=== PATIENT | male | born 1965 | race Caucasian/White ===

== ENCOUNTER 2018-02-26 18:51 | Emergency (ER) | payer OTHER ==
[~2018-02-26] VITALS: Ht 175.3 cm; Wt 45.4 kg
[~2018-02-26 18:51] MED LIST: HYDR1TAB94 PO; LANS30EC PO; PROM25 PO; Prednisone20 MG PO; SERT100 PO; SUCR1 PO; Zovirax800 MG PO
[2018-02-26] MEDS ORDERED: Ultram50 MG PO (19:59)
[2018-02-26] MEDS ORDERED: NAPR550 PO (19:59)
[2018-02-26] MEDS ORDERED: CYCL10 PO (19:59)
== END 2018-02-26 20:07 | disposition home or self-care (01) ==
LOC: ER 18:51
DX: S40.012A Contusion of left shoulder, initial encounter (principal); S20.212A Contusion of left front wall of thorax, initial encounter; Z88.5 Allergy status to narcotic agent; Z79.899 Other long term (current) drug therapy; W22.8XXA Striking against or struck by other objects, initial encounter
CPT/HCPCS: 29105; 71101; 73030; 99283

== ENCOUNTER 2019-01-17 06:55 | Day surgery (SDC) | payer OTHER ==
[~2019-01-17] VITALS: Ht 175.3 cm; Wt 86.3 kg
[~2019-01-17 06:55] MED LIST changes: +CYCL10 PO; +NAPR550 PO; +Ultram50 MG PO
--- NOTE | 2019-01-17 07:17 | NUR ---
History, Chart, Medications and Allergies reviewed before start of procedure. Patient confirms NPO status and agrees with scheduled surgery. Reports taking all of colon prep with clear results. Patient States Post-Procedure ride home has been arranged with his , Deandra.
--- NOTE | 2019-01-17 08:09 | NUR ---
01/17/19 0808 Susanna Colón History, Chart, Medications and Allergies reviewed before start of procedure. Patient confirms NPO status and agrees with scheduled surgery. PATIENT DETERMINED TO BE ASA APPROPRIATE FOR PROPOFOL SEDATION PRIOR TO START OF PROCEDURE BY DR. BECK. 3-LEAD EKG REVIEWED WITH PHYSICIAN PRIOR TO START OF PROCEDURE. MONITOR INTACT WITH CONTINUOUS PULSE OXIMETRY AND INTERMITTENT BP.
--- NOTE | 2019-01-17 09:38 | NUR ---
0930 Patient up to Ambulate independently. Gait steady. Discharge instructions reviewed with patient. Patient verbalizes understanding. Copy given to patient to take home. Patient States Post-Procedure ride home has been arranged. Discharged via wheelchair to private car for ride home.
== END 2019-01-17 22:55 | disposition home or self-care (01) ==
LOC: ORSCMMR 06:55 → ORD 08:00 → ORSCMMR 22:55
PROVIDERS: Internal Medicine Gastroenterology
PROC: 0DB98ZX Excision of Duodenum, Via Natural or Artificial Opening Endoscopic, Diagnostic (ICD-10-PCS; principal; 2019-01-17 08:00)
PROC: 0DB58ZX Excision of Esophagus, Via Natural or Artificial Opening Endoscopic, Diagnostic (ICD-10-PCS; principal; 2019-01-17 08:00)
PROC: 0DB68ZX Excision of Stomach, Via Natural or Artificial Opening Endoscopic, Diagnostic (ICD-10-PCS; principal; 2019-01-17 08:00)
PROC: 0DBN8ZX Excision of Sigmoid Colon, Via Natural or Artificial Opening Endoscopic, Diagnostic (ICD-10-PCS; principal; 2019-01-17 08:00)
DX: K22.70 Barrett's esophagus without dysplasia (principal); K21.9 Gastro-esophageal reflux disease without esophagitis; Z12.11 Encounter for screening for malignant neoplasm of colon; Z86.010 Personal history of colon polyps; K63.5 Polyp of colon; K29.80 Duodenitis without bleeding; K44.9 Diaphragmatic hernia without obstruction or gangrene
CPT/HCPCS: 88305; 88312; 88342; J2704; J7120

== ENCOUNTER 2022-08-26 10:08 | Day surgery (SDC) | payer OTHER ==
[~2022-08-26] VITALS: Ht 175.3 cm; Wt 90.1 kg
[~2022-08-26 10:08] MED LIST changes: +METPRE4DP PO; +Percocet 5-3251 EACH PO
[2022-08-26] MEDS ORDERED: LOSA25 (10:56)
== END 2022-08-26 13:20 | disposition home or self-care (01) ==
LOC: ORSCSDS 10:08
PROVIDERS: Internal Medicine Gastroenterology
PROC: 0DBK8ZX Excision of Ascending Colon, Via Natural or Artificial Opening Endoscopic, Diagnostic (ICD-10-PCS; principal; 2022-08-26 12:15)
PROC: 0DBN8ZX Excision of Sigmoid Colon, Via Natural or Artificial Opening Endoscopic, Diagnostic (ICD-10-PCS; principal; 2022-08-26 12:15)
PROC: 0DBL8ZX Excision of Transverse Colon, Via Natural or Artificial Opening Endoscopic, Diagnostic (ICD-10-PCS; principal; 2022-08-26 12:15)
DX: K22.70 Barrett's esophagus without dysplasia (principal); K21.9 Gastro-esophageal reflux disease without esophagitis; Z12.11 Encounter for screening for malignant neoplasm of colon; Z86.010 Personal history of colon polyps; D12.2 Benign neoplasm of ascending colon; D12.3 Benign neoplasm of transverse colon; K44.9 Diaphragmatic hernia without obstruction or gangrene; K57.30 Diverticulosis of large intestine without perforation or abscess without bleeding; K64.8 Other hemorrhoids
CPT/HCPCS: 88305; J2250; J2704; J7120

== ENCOUNTER → 2023-04-22 | Outpatient (CLI) | payer OTHER ==
[~2023-04-22] MED LIST changes: +LOSA25
== END | disposition home or self-care (01) ==
LOC: LAB SHORT 12:59 → PLD 12:59
DX: D04.62 Carcinoma in situ of skin of left upper limb, including shoulder (principal)
CPT/HCPCS: 88305

== ENCOUNTER 2024-02-06 17:39 | Inpatient (IN) | payer OTHER ==
[2024-02-06] VITALS (12 sets, daily range): BP systolic 126–146; BP diastolic 86–109
[~2024-02-06] VITALS: Ht 177.8 cm; Wt 90.4 kg
[2024-02-06] MEDS ORDERED: Ondansetron HCl 2 MG / ML 2ML Vial ONE (17:46)
[2024-02-06 17:50] LABS: Calcium, Ionized (POC) 1.08 mmol/L (1.10-1.46); Chloride (POC) 100 mmol/L (98-108); Glucose (ISTAT POC) 170 mg/dL (70-99); Potassium (POC) 3.1 mmol/L (3.5-5.5); Sodium (POC) 137 mmol/L (135-148); Total CO2 (POC) 22 mmol/L (21-32)
[2024-02-06] MEDS ORDERED: HYDROmorphone HCl/Pf 1MG SYR ONE (17:50)
[2024-02-06 17:59] LABS: BASOPHILS ABSOLUTE AUTO 0.06 K/mm3 (0.00-0.23); BASOPHILS PERCENT AUTO 1 % (0-2); EOSINOPHILS ABSOLUTE AUTO 0.24 K/mm3 (0.00-0.68); EOSINOPHILS PERCENT AUTO 2 % (0-6); Hematocrit 43.5 % (37.0-53.0); Hemoglobin 15.1 g/dL (13.5-17.5); IMMATURE GRAN ABSOLUTE AUTO 0.03 K/mm3 (0.00-0.10); IMMATURE GRAN PERCENT AUTO 0 % (0-1); LYMPHOCYTES ABSOLUTE AUTO 1.99 K/mm3 (0.84-5.20); LYMPHOCYTES PERCENT AUTO 19 % (21-46); MONOCYTES ABSOLUTE AUTO 1.01 K/mm3 (0.16-1.47); MONOCYTES PERCENT AUTO 10 % (4-13); Mean Corpuscular HGB 28.7 pg (26.0-34.0); Mean Corpuscular HGB Conc 34.7 g/dL (31.5-36.5); Mean Corpuscular Volume 83 fL (80-100); Mean Platelet Volume 8.3 fL (9.1-12.4); NEUTROPHILS ABSOLUTE AUTO 7.14 K/mm3 (1.96-9.15); NEUTROPHILS PERCENT AUTO 68 % (41-73); Platelet Count 217 K/mm3 (150-400); RDW Coefficient Variation 13.2 % (11.7-14.2); RDW Standard Deviation 39.8 fL (35.1-46.3); Red Blood Cell Count 5.27 M/mm3 (4.30-5.90); White Blood Cell Count 10.47 K/mm3 (4.00-11.30)
[2024-02-06] MEDS ORDERED: LORazepam 2 MG/ML 1ML Injection IV ONE (18:00)
[2024-02-06] MEDS ORDERED: HYDROmorphone HCl/Pf 1MG SYR IV PRN (18:00)
[2024-02-06 18:08] LABS: Bilirubin, Total 1.7 mg/dL (0.1-1.0); Bun/Creatinine Ratio 12.8 (12.0-20.0); Calcium, Blood 9.5 mg/dL (8.5-10.1); Creatinine, Blood 0.94 mg/dL (0.60-1.20); Potassium, Blood 3.1 mmol/L (3.5-5.5)
[2024-02-06] MEDS ORDERED: Ondansetron HCl 2 MG / ML 2ML Vial IV ONE (18:20)
[2024-02-06] MEDS ORDERED: NS 1,000 ML IV SCH ×2 (19:00→20:55)
[2024-02-06] MEDS ORDERED: Labetalol HCL 5 MG/ML 4ML Injection (Single Dose) IV ONE (19:00)
[2024-02-06] MEDS ORDERED: NS 2,000 ML IV ONE (19:05)
[2024-02-06] MEDS ORDERED: NS 250 ML IV ONE ×2 (19:05→19:22)
[2024-02-06] MEDS ORDERED: Heparin Sodium 1000 Units/ML 10ML MDV ONE ×2 (19:05→19:22)
[2024-02-06] MEDS ORDERED: NiCARdipine HCL 1,000 MCG/5 ML SYR ONE (19:06)
[2024-02-06] MEDS ORDERED: Nitroglycerin 2 MG/20 ML BTL ONE (19:06)
[2024-02-06] MEDS ORDERED: NS KCL 40 mEq 1,000 ML IV SCH (19:15)
[2024-02-06] MEDS ORDERED: Famotidine 10 MG/ML 2ML Vial IV ONE ×2 (19:15→22:50)
[2024-02-06] MEDS ORDERED: FentaNYL Citrate 50 MCG/ML 2 ML Injection ONE (20:13)
[2024-02-06] MEDS ORDERED: Midazolam HCl 1MG / ML 2ML Vial ONE (20:13)
[2024-02-06] MEDS ORDERED: Ticagrelor 90 MG TABLET PO ONE (20:41)
[2024-02-06] MEDS ORDERED: Heparin Sodium,Porcine 5,000 UNIT/0.5 ML SDV SC ONE (20:41)
[2024-02-06] MEDS ORDERED: Ondansetron HCl 2 MG / ML 2ML Vial IV PRN ×2 (20:50→22:25)
[2024-02-06] MEDS ORDERED: Nitroglycerin 0.4 MG SUBL SL PRN (20:50)
[2024-02-06] MEDS ORDERED: HydrALAZINE HCl 20 MG / ML 1ML Vial IV PRN (20:55)
[2024-02-06] MEDS ORDERED: Acetaminophen 325 MG TABLET PO PRN (20:55)
[2024-02-06] MEDS ORDERED: Potassium Chloride 20 MEQ/15 ML UDC PO ONE (21:00)
[2024-02-06] MEDS ORDERED: Potassium Chloride 40 MEQ in NS 250 ML IV ONE (21:20)
[2024-02-06] MEDS ORDERED: Irbesartan 150 MG Tab PO SCH (22:00)
[2024-02-06] MEDS ORDERED: Ticagrelor 90 MG TABLET PO SCH (22:00)
[2024-02-06] MEDS ORDERED: LORazepam 2 MG/ML 1ML Injection IV PRN (22:00)
[2024-02-06] MEDS ORDERED: Atorvastatin 40 MG Tab PO SCH (22:00)
[2024-02-06] MEDS ORDERED: FentaNYL Citrate 50 MCG/ML 2 ML Injection IV PRN (22:25)
[2024-02-06 23:00] LABS: U Amphetamine Screen Not Detected; U Barbituate Screen Not Detected; U Benzodiazapine Screen Not Detected; U Buprenorphine Screen Not Detected; U Cannabinoids Screen DETECTED; U Cocaine Screen DETECTED; U Methadone Screen Not Detected; U Methamphetamine Screen Not Detected; U Opiates Screen DETECTED; U Oxycodone Screen Not Detected; U Phencyclidine Screen Not Detected
[2024-02-06] MEDS ORDERED: Enoxaparin 40 MG/0.4 ML SYR SC SCH (23:00)
[2024-02-07] VITALS (49 sets, daily range): BP systolic 81–158; BP diastolic 55–108
--- NOTE | 2024-02-07 01:23 | NUR ---
ARRIVAL TO ICU PT ARRIVED FROM [facility] TO ICU 2. PT DROWSY BUT ABLE TO STATE HIS NAME, THE DATE, AND THAT HES IN THE HOSPITAL. MOVING AROUND IN BED, STARTLES AWAKE, IRRITABLE AT TIMES. TR BAND TO LEFT RADIAL, W/O S/S OF BLEEDING, OR HEMATOMA. DENIES CHEST PAIN/PRESSURE. VSS. ON RA. SR RATE 80'S. C/O N/V WITH 200ML OF EMESIS. PT GIVEN ZOFRAN PRIOR TO AT BEDSIDE. STATES PT IS ALLERGIC TO "NAUSEA MEDS" D/T LAST TIME PT HAD IT HE "WAS CRAWLING OUT OF HIS SKIN, TOOK HIS CLOTHES OFF AND RAN OUT OF THE HOSPITAL". NOT SURE OF WHAT MEDICATION IT WAS BUT STATED IT HAPPENED IN 1983 DURING PREVIOUS HOSPITALIZATION. PT STILL GAGGING AND NAUSEOUS AFTER ZOFRAN. HOSP CALLED AND RELAYED ABOVE INFO. ORDER FOR ATIVAN FOR N/V. PT ABLE TO TOLERATE PO MEDS AFTER. ABLE TO USE URINAL TO VOID. CALL LIGHT IN REACH.
[2024-02-07 03:13] LABS: BASOPHILS ABSOLUTE AUTO 0.05 K/mm3 (0.00-0.23); BASOPHILS PERCENT AUTO 1 % (0-2); EOSINOPHILS ABSOLUTE AUTO 0.06 K/mm3 (0.00-0.68); EOSINOPHILS PERCENT AUTO 1 % (0-6); Hematocrit 41.7 % (37.0-53.0); Hemoglobin 14.2 g/dL (13.5-17.5); IMMATURE GRAN ABSOLUTE AUTO 0.03 K/mm3 (0.00-0.10); IMMATURE GRAN PERCENT AUTO 0 % (0-1); LYMPHOCYTES ABSOLUTE AUTO 1.04 K/mm3 (0.84-5.20); LYMPHOCYTES PERCENT AUTO 10 % (21-46); MONOCYTES ABSOLUTE AUTO 0.87 K/mm3 (0.16-1.47); MONOCYTES PERCENT AUTO 8 % (4-13); Mean Corpuscular HGB Conc 34.1 g/dL (31.5-36.5); Mean Corpuscular Volume 85 fL (80-100); Mean Platelet Volume 8.4 fL (9.1-12.4); NEUTROPHILS ABSOLUTE AUTO 8.42 K/mm3 (1.96-9.15); NEUTROPHILS PERCENT AUTO 80 % (41-73); Platelet Count 165 K/mm3 (150-400); RDW Coefficient Variation 13.4 % (11.7-14.2); RDW Standard Deviation 41.6 fL (35.1-46.3); White Blood Cell Count 10.47 K/mm3 (4.00-11.30)
[2024-02-07 03:40] LABS: LDL/HDL RATIO 3.2; Magnesium, Blood 1.9 mg/dL (1.6-2.4); Very Low Density Lipoprot Chol 28 mg/dL (6-32)
[2024-02-07 03:41] LABS: Alanine Aminotransfer (ALT/SGP 43 U/L (12-78); Albumin, Blood 3.6 g/dL (3.4-5.0); Albumin/Globulin Ratio 0.9 (0.8-1.8); Alk Phos 65 U/L (50-136); Anion Gap 9 mmol/L (3-11); Aspartate Aminotrans (AST/SGOT 488 U/L (12-37); Bilirubin, Total 1.8 mg/dL (0.1-1.0); Blood Urea Nitrogen 9 mg/dL (8-24); Bun/Creatinine Ratio 12.4 (12.0-20.0); CHOL/HDL RATIO 4.8; CO2, Blood 26 mmol/L (21-32); Calcium, Blood 8.6 mg/dL (8.5-10.1); Chloride, Blood 107 mmol/L (98-108); Cholesterol 213 mg/dL (50-200); Creatinine, Blood 0.72 mg/dL (0.60-1.20); Globulin, Blood 3.8 g/dL (2.2-4.0); Glomerular Filtration Rate 105 (60-); Glucose, Blood 129 mg/dL (70-99); HDL Cholesterol 44 mg/dL (>39); Low Density Lipoprotein Chol 141 mg/dL (0-110); Potassium, Blood 4.1 mmol/L (3.5-5.5); Sodium, Blood 138 mmol/L (136-145); Total Protein, Blood 7.4 g/dL (6.4-8.2); Triglycerides 142 mg/dL (30-160)
[2024-02-07] MEDS ORDERED: Omeprazole 20 MG CapCR PO SCH (06:15)
--- NOTE | 2024-02-07 06:40 | NUR ---
SHIFT SUMMARY PT C/O 02/18 CHEST PAIN THIS AM DESCRIBED "ACHY WITH PRESSURE". EKG DONE. PT GIVEN ONE DOSE OF NITRO AND CHEST PAIN 11/21. DR PEREZ NOTIFIED AND PROVIDER TO PUT IN ORDERS. PT NOW RESTING COMFORTABLY WITH EYES CLOSED. VSS. HTN NOTED AT TIMES. MEDICATED FOR N/V X 2. TR BAND OFF AT 0215. SITE COVERED AND ARM BOARD IN PLACE. PT REQUIRE FREQUENT EDUCATION ON NOT BENDING WRIST OR MESSING WITH ARM BOARD. VOIDS VIA URINAL. REPORT GIVEN TO ONCOMING RN.
[2024-02-07] MEDS ORDERED: Metoprolol Succinate 25 MG TABCR PO SCH (07:00)
[2024-02-07] MEDS ORDERED: Isosorbide Mononitrate 30 MG TABCR PO SCH (07:00)
[2024-02-07] MEDS ORDERED: Irbesartan 150 MG Tab PO SCH (09:00)
[2024-02-07] MEDS ORDERED: Enoxaparin 40 MG/0.4 ML SYR SC SCH (09:00)
[2024-02-07] MEDS ORDERED: Aspirin 81 MG TabEC PO SCH (09:00)
--- NOTE | 2024-02-07 09:52 | NUR ---
PT IS A/O X4. HE ANSWERS QUESTIONS APPROPRIATELY, HE IS SLIGHTLY AGITATED. HE AWAKENS EASILY TO VERBAL STIMULI, HE REPORTS THAT HE IS STILL SLEEPY. HTN NOTED, HE JUST RECIEVED HIS BP MEDICATIONS AT THIS TIME. HE DENIES NAUSEA. HE DENIES CP BUT REPORTS THAT HE FEELS "A BIT OF PRESSURE" THAT HAS BEEN THERE SINCE PROCEDURE. LUNG SOUNDS ARE CLEAR TO DIM. NO EXTRA HEART SOUNDS NOTED. NO EDEMA NOTED. HE IS SBA TO TOILET.
--- NOTE | 2024-02-07 11:40 | NUR ---
PT WITH EYES CLOSED, EVEN CHEST RISE AND FALL NOTED. SR NOTED ON MONITOR.
--- NOTE | 2024-02-07 11:58 | NUR ---
PT ON PHONE WITH , PT IS AGITATED WHILE ON PHONE WITH SHE HAS NOT ARRIVED HERE. HE HAS REFUSED HIS LUNCH TRAY
--- NOTE | 2024-02-07 12:22 | NUR ---
PT UP IN BED SHOUTING THAT HE IS NAUSEOUS. HE REPORTS "A SUPER BAD HEADACHE" GRABBING HEAD. REPORTS THAT HE IS ALLERGIC TO ALL NAUSEA MEDICATIONS AFTER HE HAS BEEN MEDICATED FOR PAIN, SHE REPORTS THAT HE NEEDS TO TAKE ATIVAN FOR NAUSEA IS ALL THAT HE CAN TAKE. HE WAS STILL UP IN BED WITH NAUSEA AND PAIN, HE IS MEDICATED WITH ATIVAN FOR NASUEA WHICH DID RESOLVE NASUEA. HE IS NOW RELAXING IN BED, WITH EYES CLOSED.
--- NOTE | 2024-02-07 13:10 | NUR ---
PAIN AND NAUSEA ARE WELL CONTROLLED AT THIS TIME, PT IS RESTING WELL IN BED WITH EVEN CHEST RISE AND FALL NOTED. 119/80, RR 22, 95% ON RA, 84 HR. IS AT THE BEDSIDE, SHE EXPRESSES THAT SHE WOULD NOT LIKE TO SPEAK TO DR PEREZ AGAIN, THEN ASKS IF SHE IS BEING RECORDED, THEN BEGINS SPEAKING ABOUT THE LOSS OF HER SON A FEW WEEKS AGO AND AGAIN IS CONCERNED THAT SHE MIGHT BE BEING RECORDED STATING "I CAN'T SAY ANYTHING BECAUSE SHIT IS GONNA GO DOWN NEXT WEEK" THE SUBJECT IS CHANGED. SHE REPORTS THAT PT IS ALLERGIC TO ZOFRAN STATING THAT IS CAUSES HIM TO HAVE SEIZURES, SHE EXPRESSED THAT SHE IS ANGRY THAT "THE DOCTOR KNEW IT AND GAVE IT TO HIM ANYWAYS" IS ABLE TO BE REDIRECTED, AND CALMS.
--- NOTE | 2024-02-07 14:06 | NUR ---
MULTIPLE FAMILY IN ROOM VISITING WITH PATIENT. HE IS RESTING PAIN FREE. EVEN NONLABORED CHEST RISE AND FALL NOTED. 110/79, 19RR, 95% ON RA
--- NOTE | 2024-02-07 15:17 | NUR ---
DR ELLISON WAS IN THIS AFTERNOON TO SEE PATIENT, THE PLAN IS FOR D/C HOME TOMORROW, WITH FOLLOW-UP IN 1 MONTH. FAMILY IS EDUCATED THAT PT WILL BE D/C ON ASA 81MG WHICH STS WILL BE AN ISSUE FOR HIM DUE TO HIS STOMACH ISSUES, DR ELLISON FURTHER EDUCATED S/O ABOUT THE IMPORTANCE OF ASPRIN IN MAINTAINING THE PATENCY OF HIS STENT. SHE IS ALSO EDUCATED BY THAT PT WILL BE ON [facility] FOR AT LEAST A YEAR.
--- NOTE | 2024-02-07 17:26 | NUR ---
SPOUSE HAS WENT HOME FOR THE EVENING. PT CONTINUES TO REST WELL IN BED, EVEN NON LABORED CHEST RISE AND FALL NOTED. NO SWELLING OR TENDERNESS AT THE RADIAL ACCESS SITE, ARM BOARD REMAINS IN PLACE, THE ARM BOARD DID REQUIRE REPOSITIONING T/O THE NIGHT. HE CONTINUES TO DENY CHEST PAIN, DENIES SHORTNESS OF BREATH. HE DID NOT WISH TO EAT DINNER, HE DID HAVE A FEW SNACKS THAT HIS HAD BROUGHT IN BUT OTHER MANRIQUE HAS EATING LIGHT TODAY
--- NOTE | 2024-02-07 22:06 | NUR ---
THIS RN ASSUMED CARE OF PT AT 1900. PT ALERT & ORIENTED x4, COOPERATIVE WITH CARES AND MEDS. COMPLAINING OF HEADACHE, 6/, TREATED PAIN PER MAR ORDERS. PT NOW RESTING COMFORTABLY, EVEN CHEST RISE AND FALL. HEMODYNAMICALLY STABLE & AFEBRILE. RIGHT RADIAL SITE CLEAN, DRY & INTACT, W/O SITE COMPLICATION. PT IS INDEPENDENT W/ ADL'S. CALL LIGHT WITHIN REACH.
[2024-02-08] VITALS (7 sets, daily range): BP systolic 101–125; BP diastolic 61–81
--- NOTE | 2024-02-08 00:41 | NUR ---
PT DENIES PAIN AT THIS TIME. RESTING INTERMITTENTLY, EVEN CHEST RISE AND FALL. SP02 93% ON RA. HR @ 87, BP 125/67, AFEBRILE. DENIES CHEST PAIN/PRESSURE AT THIS TIME. RIGHT RADIAL SITE W/O COMPLICATION - CLEAN, DRY, & INTACT.
[2024-02-08 03:51] LABS: Bun/Creatinine Ratio 15.2 (12.0-20.0); Calcium, Blood 9.3 mg/dL (8.5-10.1); Creatinine, Blood 0.85 mg/dL (0.60-1.20); Potassium, Blood 3.7 mmol/L (3.5-5.5)
--- NOTE | 2024-02-08 03:57 | NUR ---
PT IN BED, RESTING QUIETLY. EVEN CHEST RISE & FALL. DENIES PAIN/CHEST DISCOMFORT AT THIS TIME. RIGHT RADIAL SITE CLEAN, DRY, INTACT WITHOUT SITE COMPLICATION. PT REMAINS HEMODYNAMICALLY STABLE AND WITHOUT ACUTE EVENT.
--- NOTE | 2024-02-08 06:00 | NUR ---
SHIFT SUMMARY PT ALERT & ORIENTED x4 THROUGHOUT SHIFT. PAIN TREATED PER [facility] ORDERS. PT COOPERATIVE, CALL LIGHT APPROPRIATE. REPORTS HE RESTED WELL OVER NIGHT. REMAINS HEMODYNAMICALLY STABLE, AFEBRILE, W/O ACUTE EVENTS. RIGHT RADIAL SITE CLEAN, DRY, AND INTACT WITHOUT SITE COMPLICATION.
--- NOTE | 2024-02-08 09:18 | NUR ---
AM NOTE... ASSUMED CARE OF PT AT 0700. PT IS A&Ox4 AND IND IN THE ROOM. PT DENIES ANY CHEST PAIN/PRESSURE AT REST OR WITH ACTIVITY. PT'S VS STABLE. PT IS ON RA WITH O2 SATS>95%. MEDICATION EDUCATION PROVIDED TO THE PT WITH AM MEDICATION PASS. WILL CONTINUE TO MONITOR.
[2024-02-08] MEDS ORDERED: Aspir 8181 MG PO (12:15)
[2024-02-08] MEDS ORDERED: ATOR80 PO (12:15)
[2024-02-08] MEDS ORDERED: IRBE150 PO (12:16)
[2024-02-08] MEDS ORDERED: Isosorbide Mono30 MG PO (12:16)
[2024-02-08] MEDS ORDERED: METO25ER PO (12:16)
[2024-02-08] MEDS ORDERED: EFFIENT10 MG PO (12:17)
[2024-02-08] MEDS ORDERED: NITR.4SL SL (12:17)
--- NOTE | 2024-02-08 12:59 | NUR ---
PT D/C HOME... PT D/C HOME WITH ALL BELONGINGS PACKED BY THE . PT'S VS STABLE. PT DENIES CHEST PAIN/PRESSURE. DISCHARGE AND MEDICATION EDUCATION PROVIDED IN WRITTEN AND VERBAL FORMAT. ALL QUESTIONS ANSWERED BY THIS RN TO THE PT'S AND 'S SATISFACTION. BOTH IVs REMOVED WNL. PT WAS ESCORTED OUT VIA W/C.
== END 2024-02-08 13:35 | disposition home or self-care (01) | DRG 322 ==
LOC: ER 17:39 → ICUE 19:27 → ER 19:27 → ICUE 20:44
PROVIDERS: Emergency Medicine; ADMIT Internal Medicine Cardiovascular Disease
PROC: 027034Z Dilation of Coronary Artery, One Artery with Drug-eluting Intraluminal Device, Percutaneous Approach (ICD-10-PCS; principal; 2024-02-06)
PROC: B2111ZZ Fluoroscopy of Multiple Coronary Arteries using Low Osmolar Contrast (ICD-10-PCS; 2024-02-06)
DX: I21.29 ST elevation (STEMI) myocardial infarction involving other sites (principal); I10 Essential (primary) hypertension; E78.5 Hyperlipidemia, unspecified; K21.9 Gastro-esophageal reflux disease without esophagitis; K44.9 Diaphragmatic hernia without obstruction or gangrene; K22.70 Barrett's esophagus without dysplasia; E87.6 Hypokalemia; F10.90 Alcohol use, unspecified, uncomplicated; F14.90 Cocaine use, unspecified, uncomplicated; F12.90 Cannabis use, unspecified, uncomplicated; F11.90 Opioid use, unspecified, uncomplicated; Z88.5 Allergy status to narcotic agent; Z79.899 Other long term (current) drug therapy; Z98.890 Other specified postprocedural states
CPT/HCPCS: 36415; 71275; 74175; 76937; 80047; 80048; 80053; 80061; 82947; 83036; 83735; 84484; 85014; 85025; 85347; 86850; 86900; 86901; 93005; 93010; 93306; 93458; 94762; 96361-59; 96372; 96374-59; 96375; 96375-59; 96376; 96376-59; 99152; 99285-25; A9270; C1725; C1769; C1874; C1887; C1894; C9600; C9606; G0378; J1170; J1644; J1650; J2060; J2250; J2405; J3010; J3480; J7030; J7050; Q9967

== ENCOUNTER 2024-02-14 16:23 | Emergency (ER) | payer OTHER ==
[~2024-02-14] VITALS: Ht 175.3 cm; Wt 90.7 kg
[~2024-02-14 16:23] MED LIST changes: +ATOR80 PO; +Aspir 8181 MG PO; +EFFIENT10 MG PO; +IRBE150 PO; +Isosorbide Mono30 MG PO; +METO25ER PO; +NITR.4SL SL
[2024-02-14 17:18] LABS: BASOPHILS ABSOLUTE AUTO 0.05 K/mm3 (0.00-0.23); BASOPHILS PERCENT AUTO 1 % (0-2); EOSINOPHILS ABSOLUTE AUTO 0.16 K/mm3 (0.00-0.68); EOSINOPHILS PERCENT AUTO 2 % (0-6); Hematocrit 43.9 % (37.0-53.0); Hemoglobin 14.9 g/dL (13.5-17.5); IMMATURE GRAN ABSOLUTE AUTO 0.06 K/mm3 (0.00-0.10); IMMATURE GRAN PERCENT AUTO 1 % (0-1); LYMPHOCYTES ABSOLUTE AUTO 2.08 K/mm3 (0.84-5.20); LYMPHOCYTES PERCENT AUTO 28 % (21-46); MONOCYTES ABSOLUTE AUTO 0.73 K/mm3 (0.16-1.47); MONOCYTES PERCENT AUTO 10 % (4-13); Mean Corpuscular HGB 28.5 pg (26.0-34.0); Mean Corpuscular HGB Conc 33.9 g/dL (31.5-36.5); Mean Corpuscular Volume 84 fL (80-100); Mean Platelet Volume 8.5 fL (9.1-12.4); NEUTROPHILS ABSOLUTE AUTO 4.48 K/mm3 (1.96-9.15); NEUTROPHILS PERCENT AUTO 59 % (41-73); Platelet Count 251 K/mm3 (150-400); RDW Coefficient Variation 13.2 % (11.7-14.2); RDW Standard Deviation 40.5 fL (35.1-46.3); Red Blood Cell Count 5.22 M/mm3 (4.30-5.90); White Blood Cell Count 7.56 K/mm3 (4.00-11.30)
[2024-02-14 17:31] LABS: Albumin, Blood 3.7 g/dL (3.4-5.0); Albumin/Globulin Ratio 0.9 (0.8-1.8); Bilirubin, Total 0.9 mg/dL (0.1-1.0); Bun/Creatinine Ratio 15.1 (12.0-20.0); Calcium, Blood 9.3 mg/dL (8.5-10.1); Creatinine, Blood 0.86 mg/dL (0.60-1.20); Potassium, Blood 3.9 mmol/L (3.5-5.5); Total Protein, Blood 7.7 g/dL (6.4-8.2)
[2024-02-14 19:00] VITALS: BP 123/84
== END 2024-02-14 19:00 | disposition left against medical advice (07) ==
LOC: ER 16:23
PROVIDERS: Student in an Organized Health Care Education/Training Program
DX: R42 Dizziness and giddiness (principal); R11.0 Nausea; M79.601 Pain in right arm; Z53.29 Procedure and treatment not carried out because of patient's decision for other reasons
CPT/HCPCS: 80053; 84484; 85025; 93005; 93010; 99282-25

== ENCOUNTER 2024-05-10 12:20 | Observation (INO) | payer OTHER ==
[~2024-05-10] VITALS: Ht 175.3 cm; Wt 87.9 kg
[2024-05-10 12:56] LABS: BASOPHILS ABSOLUTE AUTO 0.05 K/mm3 (0.00-0.23); BASOPHILS PERCENT AUTO 1 % (0-2); EOSINOPHILS ABSOLUTE AUTO 0.38 K/mm3 (0.00-0.68); EOSINOPHILS PERCENT AUTO 6 % (0-6); IMMATURE GRAN ABSOLUTE AUTO 0.02 K/mm3 (0.00-0.10); IMMATURE GRAN PERCENT AUTO 0 % (0-1); LYMPHOCYTES ABSOLUTE AUTO 2.03 K/mm3 (0.84-5.20); LYMPHOCYTES PERCENT AUTO 34 % (21-46); MONOCYTES ABSOLUTE AUTO 0.44 K/mm3 (0.16-1.47); MONOCYTES PERCENT AUTO 7 % (4-13); Mean Corpuscular HGB Conc 34.2 g/dL (31.5-36.5); Mean Corpuscular Volume 85 fL (80-100); Mean Platelet Volume 8.9 fL (9.1-12.4); NEUTROPHILS PERCENT AUTO 52 % (41-73); Platelet Count 171 K/mm3 (150-400); RDW Coefficient Variation 13.7 % (11.7-14.2); RDW Standard Deviation 42.7 fL (35.1-46.3); Red Blood Cell Count 4.48 M/mm3 (4.30-5.90); White Blood Cell Count 6.02 K/mm3 (4.00-11.30)
[2024-05-10 13:22] LABS: Albumin, Blood 3.4 g/dL (3.4-5.0); Bilirubin, Total 0.6 mg/dL (0.1-1.0); Bun/Creatinine Ratio 17.8 (12.0-20.0); Calcium, Blood 8.6 mg/dL (8.5-10.1); Creatinine, Blood 1.07 mg/dL (0.60-1.20); Globulin, Blood 3.5 g/dL (2.2-4.0); Potassium, Blood 4.4 mmol/L (3.5-5.5); Total Protein, Blood 6.9 g/dL (6.4-8.2)
[2024-05-10] MEDS ORDERED: NS 1,000 ML IV SCH (18:05)
[2024-05-10] MEDS ORDERED: Acetaminophen 325 MG TABLET PO PRN (18:05)
[2024-05-10 19:33] LABS: SARS-Cov-2 (COVID-19) PCR, MMC NEGATIVE (NEGATIVE)
[2024-05-10 20:29] VITALS: BP 119/73
[2024-05-10] MEDS ORDERED: DOXE10 PO (20:46)
[2024-05-10] MEDS ORDERED: Atorvastatin 40 MG Tab PO SCH (21:00)
[2024-05-10 21:21] LABS: U Amphetamine Screen Not Detected; U Barbituate Screen Not Detected; U Benzodiazapine Screen Not Detected; U Buprenorphine Screen Not Detected; U Cannabinoids Screen Not Detected; U Cocaine Screen DETECTED; U Methadone Screen Not Detected; U Methamphetamine Screen Not Detected; U Opiates Screen Not Detected; U Oxycodone Screen Not Detected; U Phencyclidine Screen Not Detected
[2024-05-10] MEDS ORDERED: Temazepam 15 MG Cap PO PRN (21:40)
[2024-05-10 21:51] VITALS: BP 97/55
[2024-05-10] MEDS ORDERED: Nitroglycerin 0.4 MG SUBL SL PRN (21:55)
[2024-05-10] MEDS ORDERED: Ketorolac Tromethamine 15mg Vial IV ONE (22:00)
[2024-05-10] MEDS ORDERED: Mag Hydrox/Al Hydrox/Simeth 18 ML,Lidocaine 2% Viscous Soln 9 ML,Atropine/Scopalam/Hyos... PO ONE (22:00)
[2024-05-11 04:17] VITALS: BP 118/79
[2024-05-11 04:38] LABS: C-Reactive Protein, High Sens. 1.58 mg/dL (0.000-3.000)
[2024-05-11 05:16] LABS: Creatinine, Blood 1.01 mg/dL (0.60-1.20)
[2024-05-11] MEDS ORDERED: Lansoprazole 15 MG TAB.RAP.DR PO SCH (06:00)
--- NOTE | 2024-05-11 06:21 | NUR ---
Patient arrived to room around 2029, admission documentation completed at bedside. Patient originally complained of burning chest pain, resolved with one time doses of GI cocktail, IV Ketorlac, PRN temazepam, see eMAR; symptoms resolved and patient slept well in bed rest of night on room air. Patient ambulating to restroom independently and flusing urine, education provided r/t intake and output measurement with cardiac problems. Will continue to monitor.
[2024-05-11 07:29] VITALS: BP 118/77
[2024-05-11] MEDS ORDERED: Isosorbide Mononitrate 30 MG TABCR PO SCH (09:00)
[2024-05-11] MEDS ORDERED: Enoxaparin 40 MG/0.4 ML SYR SC SCH (09:00)
[2024-05-11] MEDS ORDERED: Metoprolol Succinate 25 MG TABCR PO SCH (09:00)
[2024-05-11] MEDS ORDERED: Irbesartan 150 MG Tab PO SCH (09:00)
[2024-05-11] MEDS ORDERED: Aspirin 81 MG TabEC PO SCH (09:00)
[2024-05-11 11:09] LABS: Anti-Xa UFH, PHA Monitoring 0.16 IU/mL; International Normalized Ratio 1.02; Prothrombin Time Results 10.9 Sec (9.7-11.5)
[2024-05-11] MEDS ORDERED: LORazepam 2 MG/ML 1ML Injection IV PRN (11:20)
[2024-05-11] MEDS ORDERED: Dose Adjust by Pharmacy XX STA ×2 (11:21→18:57)
[2024-05-11] MEDS ORDERED: Heparin Sodium,Porcine/0.5 NS 500 ML IV SCH (11:25)
[2024-05-11 15:32] VITALS: BP 131/83
--- NOTE | 2024-05-11 18:44 | NUR ---
PATIENT A/OX4, INDEPENDENT IN ROOM. SEEN BY CARDIOLOGY TODAY AND WILL BE NPO AT MIDNIGHT FOR ANGIOGRAM IN AM. HEPARIN GTT INFUSING AND NS @ 75ML/HR. PATIENT DENIES CHEST PAIN TODAY. TYLENOL GIVEN X1 FOR HEADACHE. PATIENT BECAME VERY AGITATED THIS AM AND FRUSTRATED ABOUT NOT BEING ABLE TO REST. ATIVAN GIVEN AND PATIENT SLEPT WELL THROUGH THE AFTERNOON. NO NEW CONCERNS THIS SHIFT. AT BEDSIDE AND AWARE OF PLAN.
[2024-05-11 19:31] VITALS: BP 138/74
--- NOTE | 2024-05-11 21:49 | NUR ---
RECEIVED REPORT FROM ISAI FRANKLIN AT [id number]. TOOK OVER CARE OF PATIENT. PATIENT SLEEPING AT THIS TIME, IV NS/75/HR AND HEPARIN AT 16U/KG/HR INFUSING. TELE SHOWING SR AT 63 PER [employer].
[2024-05-12] VITALS (13 sets, daily range): BP systolic 139–179; BP diastolic 87–126
[2024-05-12 01:10] LABS: BASOPHILS ABSOLUTE AUTO 0.03 K/mm3 (0.00-0.23); BASOPHILS PERCENT AUTO 1 % (0-2); EOSINOPHILS ABSOLUTE AUTO 0.19 K/mm3 (0.00-0.68); EOSINOPHILS PERCENT AUTO 4 % (0-6); Hemoglobin 11.8 g/dL (13.5-17.5); IMMATURE GRAN ABSOLUTE AUTO 0.01 K/mm3 (0.00-0.10); IMMATURE GRAN PERCENT AUTO 0 % (0-1); LYMPHOCYTES ABSOLUTE AUTO 1.95 K/mm3 (0.84-5.20); LYMPHOCYTES PERCENT AUTO 39 % (21-46); MONOCYTES ABSOLUTE AUTO 0.34 K/mm3 (0.16-1.47); MONOCYTES PERCENT AUTO 7 % (4-13); Mean Corpuscular HGB 28.9 pg (26.0-34.0); Mean Corpuscular HGB Conc 33.7 g/dL (31.5-36.5); Mean Corpuscular Volume 86 fL (80-100); Mean Platelet Volume 8.3 fL (9.1-12.4); NEUTROPHILS ABSOLUTE AUTO 2.48 K/mm3 (1.96-9.15); NEUTROPHILS PERCENT AUTO 50 % (41-73); Platelet Count 131 K/mm3 (150-400); RDW Coefficient Variation 13.6 % (11.7-14.2); RDW Standard Deviation 42.9 fL (35.1-46.3); Red Blood Cell Count 4.09 M/mm3 (4.30-5.90)
[2024-05-12] MEDS ORDERED: Clarify Drug Order XX ONE (01:30)
[2024-05-12 01:31] LABS: Albumin, Blood 2.9 g/dL (3.4-5.0); Bilirubin, Total 0.7 mg/dL (0.1-1.0); Bun/Creatinine Ratio 13.3 (12.0-20.0); Creatinine, Blood 0.91 mg/dL (0.60-1.20); Globulin, Blood 2.8 g/dL (2.2-4.0); Potassium, Blood 3.8 mmol/L (3.5-5.5); Total Protein, Blood 5.7 g/dL (6.4-8.2)
--- NOTE | 2024-05-12 01:36 | NUR ---
PHARMACY CALLED WITH RESULTS OF PTT. ASKED IF HE WAS HAVING ANY BLEEDING ISSUES. NONE NOTED, SO ORDER TO LEAVE THE HEPARIN AT IT'S CURRENT RATE GIVEN TO ME.ATIENT NPO STARTING AT MIDNIGHT FOR AM PROCEDURE.
--- NOTE | 2024-05-12 05:45 | NUR ---
SHIFT SUMMARY PATIENT NPO AFTER MIDNIGHT. WAS WOKEN BY IV BEEPING AND HE REQUESTED ATIVAN TO GET BACK TO SLEEP. 1MG IV GIVEN. NO CHANGES IN HIS TELE RHYTHM. HEPARIN 16U/KG/HR ALL NIGHT.
[2024-05-12] MEDS ORDERED: NS 1,000 ML IV ONE ×2 (06:43→06:58)
[2024-05-12] MEDS ORDERED: Heparin Sodium 1000 Units/ML 10ML MDV ONE ×2 (06:43→06:58)
[2024-05-12] MEDS ORDERED: NS 250 ML IV ONE (06:43)
[2024-05-12] MEDS ORDERED: Verapamil HCL 2.5 MG/ML 2ML Injection ONE (06:43)
--- NOTE | 2024-05-12 06:45 | NUR ---
REPORT RECEVIED FROM REGINA ALEX. PATIENT TAKEN FOR ANGIOGRAM AND WILL GO TO PCU 14 FROM THERE.
[2024-05-12] MEDS ORDERED: FentaNYL Citrate 50 MCG/ML 2 ML Injection ONE (07:26)
[2024-05-12] MEDS ORDERED: Midazolam HCl 1MG / ML 2ML Vial ONE (07:26)
[2024-05-12] MEDS ORDERED: Tirofiban HCL Monohydrate 3.75 MG/15 ML Vial ONE (08:01)
--- NOTE | 2024-05-12 09:08 | NUR ---
AM NOTE patient arrived to pcu from [facility] at 0828. patient is hypertensive and per report from [facility] patient has been hypertensive. patient has right ulnar site, with tr band in place with 13cc at 0815. patient site is has no bleeding or bruising at this time or tender. patient is alert and oriented x4. neuro is intact. independent in adls. patient denies chest pain/pressure, pain or shortness of breath. see shift assessment for further detials. plan up to date at this time
[2024-05-12] MEDS ORDERED: ATOR80 PO (10:49)
[2024-05-12] MEDS ORDERED: HydrALAZINE HCl 20 MG / ML 1ML Vial IV PRN ×2 (11:30→12:30)
[2024-05-12] MEDS ORDERED: AmLODIPine Besylate 5 MG Tab PO SCH (12:00)
[2024-05-12] MEDS ORDERED: AMLO5 PO (12:20)
[2024-05-12] MEDS ORDERED: FentaNYL Citrate 50 MCG/ML 2 ML Injection IV ONE (14:00)
[2024-05-12] MEDS ORDERED: Prochlorperazine Edisylate 10 mg Vial IV PRN (14:15)
[2024-05-12] MEDS ORDERED: ROSUVASTATIN CAL5 MG PO (15:15)
--- NOTE | 2024-05-12 17:48 | NUR ---
shift summary this rn went over discharge instructions with the patient-medication changes, radial site care, and follow up appointments. patient verbalized understanding and has print out copies of education on new medications and radial site care. patient reported a headache 9/10 with 0-10 and 10 being the worst pain. patient medicated and stated pain went down to 8/10. patient current pain is at 5 [address] head [address] was negative. patient left at 1751 to go wait outside for who was on the way. patient did not want to wait in room anymore and rehan rn took the patient out. patient left with all belongings and in no distess with dischareg education and arm board still in place.
== END 2024-05-12 17:50 | disposition home or self-care (01) ==
LOC: ER 12:20 → MEDS 12:21 → PCU 05-12 08:33
PROVIDERS: Family Medicine; Internal Medicine Cardiovascular Disease; Nurse Practitioner Acute Care; Physician Assistant; ADMIT Student in an Organized Health Care Education/Training Program
DX: I25.118 Atherosclerotic heart disease of native coronary artery with other forms of angina pectoris (principal); I10 Essential (primary) hypertension; E78.5 Hyperlipidemia, unspecified; F14.99 Cocaine use, unspecified with unspecified cocaine-induced disorder; K21.9 Gastro-esophageal reflux disease without esophagitis; I21.4 Non-ST elevation (NSTEMI) myocardial infarction; Z88.5 Allergy status to narcotic agent; Z88.8 Allergy status to other drugs, medicaments and biological substances; Z79.899 Other long term (current) drug therapy; Z79.82 Long term (current) use of aspirin
CPT/HCPCS: 36415; 70450; 71046; 76937; 80053; 82565; 83690; 84484; 85025; 85520; 85610; 85730; 86141; 93005; 93010; 93454; 93571; 93572; 99152; 99153; 99285-25; A9270; C1769; C1887; C1894; G0378; J0780; J1644; J1650; J1885; J2060; J2250; J3010; J3246; J7030; J7050; Q9967; U0002